=== PATIENT | male | born 1955 | race Caucasian/White ===

== ENCOUNTER 2021-10-20 14:03 | Outpatient (CLI) | payer MEDICARE, OTHER, SELFPAY ==
[2021-10-20 14:59] LABS: Uric Acid 7.1 mg/dL (3.5-8.5)
== END 2021-10-20 14:04 | disposition home or self-care (01) ==
PROVIDERS: PCP Internal Medicine
DX: M10.072 Idiopathic gout, left ankle and foot (principal); M79.672 Pain in left foot; R26.89 Other abnormalities of gait and mobility
CPT/HCPCS: 36415; 84550

== ENCOUNTER → 2022-07-14 12:14 | Outpatient (CLI) | payer MEDICARE, OTHER, MEDICAID, SELFPAY ==
--- NOTE | ~2022-07-14 | MR_ITS ---
EXAMINATION: MR cervical spine wo con DATE: 07/14/2022 13:00 INDICATION: Neck pain. TECHNIQUE: Magnetic resonance imaging (MRI) of the cervical spine was performed without intravenous c ontrast. Sequences included sagittal T2-weighted FSE, sagittal T2-weighted FS FSE, sagittal T1-weight ed FSE, axial MERGE, and axial T2-weighted FSE. COMPARISON: None FINDINGS: Bone alignment is normal. There is mild chronic anterior wedging of T1 vertebral body. Ther e is mildly decreased disc height from C3-C4 through C5-C6 and moderately decreased disc height at C6 -C7. The spinal cord signal intensity is normal. The following disc levels are specifically discussed : C2-C3: There is a central protrusion. There is mild bilateral uncovertebral joint osteoarthritis. The re is moderate bilateral facet joint osteoarthritis. There is mild left neural foraminal stenosis. Th ere is mild central canal stenosis. C3-C4: The disc is bulging. There is moderate bilateral uncovertebral joint osteoarthritis. There is moderate bilateral facet joint osteoarthritis. There is mild bilateral neural foraminal stenosis. The re is mild central canal stenosis. C4-C5: The disc is bulging. There is moderate bilateral uncovertebral joint osteoarthritis. There is moderate right and severe left facet joint osteoarthritis. There is mild bilateral neural foraminal s tenosis. There is mild central canal stenosis. C5-C6: The disc is bulging. There is mild bilateral uncovertebral joint osteoarthritis. There is leatha re bilateral facet joint osteoarthritis. There is mild bilateral neural foraminal stenosis. There is no central canal stenosis. C6-C7: The disc is bulging. There is severe bilateral uncovertebral joint osteoarthritis. There is mi ld right and moderate left facet joint osteoarthritis. There is mild bilateral neural foraminal steno sis. There is mild central canal stenosis. C7-T1: The disc does not extend beyond the endplate margin. There is no uncovertebral joint osteoarth ritis. There is severe right and moderate left facet joint osteoarthritis. There is mild bilateral ne ural foraminal stenosis. There is no central canal stenosis. IMPRESSION: 1. Moderate cervical spondylosis. Reviewed, dictated and finalized at location A.
== END ==
PROVIDERS: PCP Internal Medicine; Visit Provider Internal Medicine
DX: M47.813 Spondylosis without myelopathy or radiculopathy, cervicothoracic region (principal); M48.03 Spinal stenosis, cervicothoracic region
CPT/HCPCS: 72141

== ENCOUNTER → 2022-09-04 08:25 | Outpatient (CLI) | payer MEDICARE, MEDICAID, OTHER, SELFPAY ==
--- NOTE | ~2022-09-04 | MR_ITS ---
EXAMINATION: MR shoulder LT wo con DATE: 09/04/2022 09:06 INDICATION: Falling injury with left shoulder pain and limited range of motion. TECHNIQUE: Magnetic resonance imaging (MRI) of the left shoulder was performed without intravenous co ntrast. Sequences included axial PD-weighted FS FSE, coronal oblique PD-weighted FS FSE, coronal obli que T2-weighted FS FSE, sagittal PD-weighted FS FSE, and sagittal T1-weighted SE. COMPARISON: None. FINDINGS: Coracoacromial arch: The acromion undersurface is flat in morphology (type I). The coracoacromial ligament is normal. Mervat re acromioclavicular osteoarthritis. Rotator cuff: Mild supraspinatus and subscapularis tendinopathy without tear. The infraspinatus and teres minor ten dons are normal. Normal rotator cuff muscle bulk and signal. Biceps tendon, glenoid labrum and glenohumeral cartilage: Long head of the biceps tendon is normal. Degenerative tearing of the superior to posterior superior glenoid labrum. The posterior inferior labrum is diminutive and partially replaced by small marginal osteophytes along the rim of the glenoid. Mild partial-thickness cartilage loss along the glenoid wit h smooth chondral surface additional partial thickness cartilage loss with smooth chondral surface al jorge the margins of the humeral articular surface. Fluid: Physiologic amount of fluid in the glenohumeral joint and biceps tendon sheath. No loose osteochondr al bodies. Mild increased fluid signal in the subacromial/subdeltoid bursa consistent with minimal bu rsitis. Bones: Alignment is normal. No fracture or pathologic marrow replacing process. Minimal cystic change at the lesser and greater tuberosities. IMPRESSION: 1. Severe acromioclavicular osteoarthritis. 2. Mild glenohumeral osteoarthritis with mild degenerative tearing of the superior to posterior labru m and likely chronic degeneration of the now diminutive posterior inferior labrum. 3. Mild supraspinatus and subscapularis tendinopathy without tear. Reviewed, dictated and finalized at location B. IMPRESSION: 1. Severe acromioclavicular osteoarthritis. 2. Mild glenohumeral osteoarthritis with mild degenerative tearing of the super ior to posterior labrum and likely chronic degeneration of the now diminutive p osterior inferior labrum. 3. Mild supraspinatus and subscapularis tendinopathy without tear.
== END ==
PROVIDERS: PCP Internal Medicine; Visit Provider Internal Medicine
DX: S22.009A Unspecified fracture of unspecified thoracic vertebra, initial encounter for closed fracture (principal); X58.XXXA Exposure to other specified factors, initial encounter; M19.012 Primary osteoarthritis, left shoulder
CPT/HCPCS: 73221

== ENCOUNTER 2022-10-06 09:32 | Outpatient (CLI) | payer MEDICARE, OTHER, SELFPAY ==
--- NOTE | ~2022-10-06 | DEXA_ITS ---
Bone Density Report Name: EDDIE GODINEZ Age: 67 Sex: Male Ethnicity: White Date of : 1955 Indication: history of glucocorticoids; Referring [facility] Study: Bone densitometry was performed. Exam Date: October 06, 2022 Accession number: [id number] Bone Density: Region BMD T-score Z-score Classification AP Spine(L1-L4) 1.202 1.0 1.8 Normal Femoral Neck (Left) 0.926 0.0 1.1 Normal Total Hip (Left) 1.134 0.7 1.3 Normal Femoral Neck (Right) 0.943 0.1 1.2 Normal Total Hip (Right) 1.169 0.9 1.5 Normal Total Hip Mean 1.152 0.8 1.4 Normal World Health Organization criteria for BMD impression classify patients as: Normal (T-score at or above -1.0), Osteopenia (T-score between -1.0 and -2.5), or Osteoporosis (T-score at or below -2.5). 10-year Fracture Risk: FRAX not reported because: All T-scores for Spine Total, Hip Total, Femoral Neck at or above -1.0 Clinical Information Provided by Patient: Has taken Glucocorticoids Has used the following medications: Vitamin D, Calcium Patient maximum height was 68 Impression: The patient has normal bone mass. The patient has risk factors, including: history of glucocorticoid therapy. Discussion: BONE DENSITY IS ABOVE THE MINIMUM DESIRABLE LEVEL AT ALL SKELETAL SITES TESTED. This patient?s bone mineral density is above the minimum desirable level (T-score -1.0 or better) at all sites measured. The patient should follow a healthful lifestyle (good nutrition with adequate calcium and vitamin D, and appropriate weight-bearing exercise). Follow-Up: Consider repeating this study in 5 years or sooner if there is some new clinical indication. Reported by: [facility] on 10/06/2022 9:56:00 AM. Reviewed, dictated and finalized at location A. [facility]
== END 2022-10-06 09:33 | disposition home or self-care (01) ==
PROVIDERS: PCP Internal Medicine; Visit Provider Internal Medicine
DX: S22.009A Unspecified fracture of unspecified thoracic vertebra, initial encounter for closed fracture (principal)
CPT/HCPCS: 77080

== ENCOUNTER 2024-01-16 11:38 | Outpatient (CLI) | payer MEDICARE, OTHER, SELFPAY ==
--- NOTE | ~2024-01-16 | XR_ITS ---
EXAMINATION: XR chest 2V Exam Date/Time: 01/16/2024 11:50 CDT HISTORY: CHRONIC COUGH Comparison: None. RESULT: Lines, tubes, and devices: None. Lungs and pleura: Streaky bilateral scar/atelectasis. Mild bilateral costophrenic angle blunting. No pneumothorax or focal consolidation. Cardiomediastinal silhouette: Unremarkable. Other: No acute osseous or upper abdominal finding. IMPRESSION: Bibasilar scar/atelectasis. Possible small bilateral pleural effusions versus chronic pleural bluntin g. Comparison to outside studies would be helpful if available. Reviewed, dictated and finalized at location K. IMPRESSION: Bibasilar scar/atelectasis. Possible small bilateral pleural effusions versus c hronic pleural blunting. Comparison to outside studies would be helpful if oneyda freedman.
--- NOTE | ~2024-01-16 | XR_ITS ---
EXAM: XR knee LT 3V DATE: 01/16/2024 12:02 HISTORY: COUGH, PAIN OF LT KNEE JOINT . COMPARISON: None available. FINDINGS: Normal mineralization. No fracture or dislocation. No lytic or blastic lesion. Moderate me dial joint space narrowing. Mild tricompartmental osteophytosis. No erosion or periosteal change. Sof t tissues within normal limits. IMPRESSION: Tricompartmental left knee osteoarthritis, moderate in the medial compartment. Reviewed, dictated and finalized at location K. IMPRESSION: Tricompartmental left knee osteoarthritis, moderate in the medial c ompartment.
== END 2024-01-16 11:39 | disposition home or self-care (01) ==
LOC: ANHIMG 11:39
PROVIDERS: PCP Internal Medicine; Visit Provider Internal Medicine
DX: R05.9 Cough, unspecified (principal); M17.12 Unilateral primary osteoarthritis, left knee; R91.8 Other nonspecific abnormal finding of lung field
CPT/HCPCS: 71046; 73562

== ENCOUNTER 2024-07-24 14:57 | Outpatient (CLI) | payer MEDICARE, OTHER, SELFPAY ==
--- NOTE | ~2024-07-24 | XR_ITS ---
2 VIEWS STERNUM Ordering provider: Jalen Bales ([place]), History: . LOCALIZED SWELLING . Comparison: None. FINDINGS: BONES: No sternal fracture. JOINTS: Sternoclavicular joints is well maintained without dislocation. SOFT TISSUES: Normal. IMPRESSION: No definite acute osseous abnormality. Reviewed, dictated and finalized at location A.
== END 2024-07-24 14:58 | disposition home or self-care (01) ==
PROVIDERS: PCP Internal Medicine; Visit Provider Internal Medicine
DX: R22.2 Localized swelling, mass and lump, trunk (principal); R05.9 Cough, unspecified; M25.562 Pain in left knee
CPT/HCPCS: 71120

== ENCOUNTER 2025-01-08 10:23 | Outpatient (CLI) | payer MEDICARE, OTHER, SELFPAY ==
--- NOTE | ~2025-01-08 | CT_ITS ---
CT sinus wo con Ordering provider: Jalen Bales ([place]), History: . Acute sinusitis . Comparison: None. Technique: Thin slice Scans CT of the paranasal sinuses was performed with coronal and sagittal refor matted images. No IV contrast. . Automated exposure control and iterative reconstruction technique w ere employed. The dose-length product was 281.78 mGy-cm. Findings: NASAL SEPTUM: Mild left nasal septal deviation. OSTEOMEATAL UNITS: The right is patent the left is demonstrated. NASAL TURBINATES AND NASOPHARYNX: Normal. PARANASAL SINUSES: Bilateral maxillary sinus disease. Left ethmoid sinus disease. Right frontal sinus disease. VISUALIZED MASTOIDS: Normal as visualized. BONES: Normal. SUPERFICIAL SOFT TISSUES/VISUALIZED BRAIN PARENCHYMA: Normal. IMPRESSION: Mild maxillary, right frontal and left ethmoidal sinus disease. Mild left nasal septal deviation. Reviewed, dictated and finalized at location A.
--- NOTE | ~2025-01-08 | XR_ITS ---
XR chest 2V Ordering provider: Jalen Bales ([place]), History: 69 years Male with . Chronic cough . Comparison: None. FINDINGS: MEDIASTINUM: The cardiac silhouette is not enlarged. LUNGS: No infiltrates, effusions or pneumothorax. Granulomas in the right costophrenic angle. OTHER: No free air under the diaphragm. IMPRESSION: No acute cardiopulmonary pathology. Reviewed, dictated and finalized at location A.
== END 2025-01-08 10:24 | disposition home or self-care (01) ==
LOC: MICIMG 10:25
PROVIDERS: PCP Internal Medicine; Visit Provider Internal Medicine
DX: J34.2 Deviated nasal septum (principal); J01.00 Acute maxillary sinusitis, unspecified; J01.20 Acute ethmoidal sinusitis, unspecified; R05.3 Chronic cough; J01.10 Acute frontal sinusitis, unspecified
CPT/HCPCS: 70486; 71046

== ENCOUNTER 2025-06-01 09:01 | Outpatient (CLI) | payer MEDICARE, OTHER, SELFPAY ==
--- NOTE | ~2025-06-01 | CT_ITS ---
EXAMINATION: CT sinus wo con DATE: 06/01/2025 09:21 INDICATION: Chronic maxillary sinusitis TECHNIQUE: Computed tomography (CT) of the paranasal sinuses was performed without intravenous contra st. The dose-length product was 287.09 mGy-cm. Automated exposure control and iterative reconstructio n technique were employed. COMPARISON: CT dated 01/08/2025 FINDINGS: There is mucosal thickening of the maxillary sinus. Ostiomeatal units are patent. Leftward nasal septal deviation. Mastoids are pneumatized. Rightward nasal septal deviation. There is mild muc osal thickening of the right frontal sinuses. IMPRESSION: 1. Mild sinus disease. Reviewed, dictated and finalized at location A. IMPRESSION: 1. Mild sinus disease.
== END 2025-06-01 09:02 | disposition home or self-care (01) ==
PROVIDERS: PCP Internal Medicine; Visit Provider Otolaryngology
DX: J32.0 Chronic maxillary sinusitis (principal)
CPT/HCPCS: 70486